=== PATIENT | male | born 1985 | race Caucasian/White ===

== ENCOUNTER → 2017-12-04 | Outpatient (CLI) | payer OTHER ==
--- NOTE | 2017-12-04 16:40 | XR ---
EXAMINATION TYPE: XR shoulder complete LT DATE OF EXAM: 12/04/2017 COMPARISON: NONE HISTORY: 32 year-old male left shoulder pain TECHNIQUE: 3 views FINDINGS: AC joint is congruent and intact. Subacromial space is preserved. No tendinous or bursal calcificatio ns. Smooth delineation to the greater tuberosity. No acute fracture, subluxation, or dislocation. Vis ualized left hemithorax is clear. IMPRESSION: No acute osseous abnormality seen.
== END | disposition home or self-care (01) ==
LOC: RADXRMAIN 16:15
PROVIDERS: ATTEND Family Medicine
DX: M25.512 Pain in left shoulder (principal); M79.622 Pain in left upper arm

== ENCOUNTER 2021-03-26 22:33 | Emergency (ER) | payer OTHER ==
[2021-03-26 22:39] VITALS: TEMP 99
[2021-03-26] MEDS ORDERED: ALPRAZolam 1 MG TAB PO STA (23:19)
--- NOTE | 2021-03-26 23:29 | ED ---
Anxiety HPI - General Chief Complaint: Anxiety Stated Complaint: Vomiting Time Seen by Provider: 03/26/21 23:01 Source: patient Mode of arrival: ambulatory - History of Present Illness Initial Comments: Patient is a 35-year-old male with history of hypertension, anxiety, presenting to the emergency Department with complaints of increased anxiety since yesterday. Patient states over the last few days he's felt like his anxiety has been increasing, he's been really stressed at work. Patient states today seemed to be at its worse and so he tried to taken edible to help with his symptoms however he feels like it made it worse. He states he is having some chest tightness and feels lightheaded. He does not take medication for anxiety, he states he can usually calm himself down by doing other things. He denies any chest pains, no nausea or vomiting. He denies any other drug use. He denies any suicidal thoughts. He has no fevers or chills. He has no further complai nts at this time. Upon arrival to the ER, he is slightly tachycardia at 108, otherwise vitals are stable. - Related Data Allergies/Adverse Reactions: Allergies Allergy/AdvReac Type Severity Reaction Status Date / Time Sulfa (Sulfonamide Allergy Anaphylaxis Verified 03/26/21 22:39 Antibiotics) Review of Systems ROS Statement: Those systems with pertinent positive or pertinent negative responses have been documented in the HPI. ROS Other: All systems not noted in ROS Statement are negative. Past Medical History Past Medical History: Hypertension History of Any Multi-Drug Resistant Organisms: None Reported Past Surgical History: Adenoidectomy, Tonsillectomy Additional Past Surgical History / Comment(s): eye surgery Past Psychological History: Anxiety Smoking Status: Never smoker Past Alcohol Use History: None Reported Past Drug Use History: Marijuana General Exam - General Exam Comments Initial Comments: GENERAL: Patient is well-developed and well-nourished. Patient is nontoxic and in mild distress, appears anxious. HEAD: Atraumatic, normocephalic. EYES: Pupils equal round and reactive to light, extraocular movements intact, sclera anicteric, conjunctiva are normal. Eyelids were unremarkable. ENT: TMs normal, nares patent, oropharynx clear without exudates. Moist mucous membranes. NECK: Normal range of motion, supple without lymphadenopathy or JVD. LUNGS: Unlabored respirations. Breath sounds clear to auscultation bilaterally and equal. No wheezes rales or rhonchi. HEART: Regular rate and rhythm without murmurs, rubs or gallops. ABDOMEN: Soft, nontender, normoactive bowel sounds. No guarding, no rebound. No masses appreciated. : Deferred MUSCULOSKELETAL: Normal extremities with adequate strength and normal range of motion, no pitting or edema. No clubbing or cyanosis. NEUROLOGICAL: Patient is alert and oriented x 3. Motor and sensory are also intact. Cranial nerves II through XII grossly intact. Symmetrical smile. Normal speech, normal gait. PSYCH: Normal mood, normal affect. Anxious. SKIN: Warm, Dry, normal turgor, no rashes or lesions noted. Limitations: no limitations Course Vital Signs 03/26/21 22:35 Temperature 99.0 F Pulse Rate 108 H Respiratory 20 Rate Blood Pressure 154/94 O2 Sat by Pulse 97 Oximetry Medical Decision Making - Medical Decision Making Patient is a 35-year-old male presenting for anxiety over the past few days. He tried edible tonight to help the symptoms however he feels like it made it worse. His vitals are stable other than being slightly tachycardia. EKG shows no acute findings other than sinus tach. Chest x-ray shows is normal. Patient given 1 mg of Xanax. His report improvement in his symptoms. Patient states for his anxiety normally uses meditation, deep breathing exercises. We discussed that he is stable for discharge, recommended going home and practicing this techniques. I also recommend following up with his PCP regarding his anxiety. He is in agreement with this plan of care. He is stable for discharge. Return parameters were discussed with him and he verbalized understanding. Case discussed with Dr. Meyers. - EKG Data EKG Comments: Sinus tach, no signs of acute ischemia. Ventricular rate 112, TX interval 146, QT 318. Disposition Clinical Impression: Acute anxiety Disposition: HOME SELF-CARE Condition: Stable Instructions (If sedation given, give patient instructions): Anxiety (ED) Additional Instructions: Please return to the Emergency Department if symptoms worsen or any other concerns. Recommend continuing with your at home relaxation techniques. Recommend staying home from work tomorrow. Follow-up with your PCP regarding her anxiety. Is patient prescribed a controlled substance at d/c from ED?: No Referrals: Donnie Ontiveros DO [Primary Care Provider] - 1-2 days Time of Disposition: 01:01
--- NOTE | 2021-03-26 23:56 | XR ---
EXAMINATION TYPE: XR chest 2V DATE OF EXAM: 03/26/2021 COMPARISON: NONE HISTORY: Chest pain TECHNIQUE: 2 views FINDINGS: Heart and mediastinum are normal. Lungs are clear. Diaphragm is normal. Bony thorax appears normal. IMPRESSION: Normal chest
[2021-03-27 01:28] VITALS: BP 133/82; PULSE 87; RESP 18
== END 2021-03-27 01:28 | disposition home or self-care (01) ==
LOC: EC 22:33
DX: F41.9 Anxiety disorder, unspecified (principal); R42 Dizziness and giddiness; R11.10 Vomiting, unspecified; R07.89 Other chest pain; I10 Essential (primary) hypertension; F12.90 Cannabis use, unspecified, uncomplicated
CPT/HCPCS: 71046; 93005; 99285

== ENCOUNTER 2021-10-27 18:26 | Emergency (ER) | payer OTHER ==
[2021-10-27 18:49] VITALS: TEMP 97.9
--- NOTE | 2021-10-27 20:03 | XR ---
EXAMINATION TYPE: XR chest 2V DATE OF EXAM: 10/27/2021 COMPARISON: 03/26/2021 HISTORY: Cough TECHNIQUE: 2 views FINDINGS: Heart and mediastinum are normal. Lungs are clear. Diaphragm is normal. Bony thorax appears normal. IMPRESSION: Normal chest. No change.
--- NOTE | 2021-10-27 20:19 | ED ---
General Adult HPI - General Chief complaint: Upper Respiratory Infection Stated complaint: sinus infection Time Seen by Provider: 10/27/21 19:25 Source: patient, family Mode of arrival: ambulatory - History of Present Illness Initial comments: 36-year-old male presents to the emergency department for evaluation of symptoms including sinus pressure and productive cough. States he is currently on an oral antibiotic for treatment of sinus infection. However, is concerned about a recent exposure to Covid therefore is requesting to be tested. States he is not vaccinated due to history of hypertension and palpitations. Does complain of somewhat decreased appetite. Denies fever, chills, headache, chest pain, shortness of breath, abdominal pain, constipation, diarrhea, or dysuria. - Related Data Allergies Allergy/AdvReac Type Severity Reaction Status Date / Time Sulfa (Sulfonamide Allergy Anaphylaxis Verified 10/27/21 18:49 Antibiotics) Review of Systems ROS Statement: Those systems with pertinent positive or pertinent negative responses have been documented in the HPI. ROS Other: All systems not noted in ROS Statement are negative. Past Medical History Past Medical History: Hypertension History of Any Multi-Drug Resistant Organisms: None Reported Past Surgical History: Adenoidectomy, Tonsillectomy Additional Past Surgical History / Comment(s): eye surgery Past Psychological History: Anxiety Smoking Status: Never smoker Past Alcohol Use History: None Reported Past Drug Use History: Marijuana General Exam Limitations: no limitations (Well-developed, well-nourished male in no acute distress. Initial temperature 97.9, pulse 124, respirations 18, blood pressure 150/111, pulse ox 97% on room air.) General appearance: alert, in no apparent distress Eye exam: Present: normal appearance, PERRL, EOMI. Absent: scleral icterus, conjunctival injection, periorbital swelling ENT exam: Present: normal exam, normal oropharynx, mucous membranes moist Respiratory exam: Present: normal lung sounds bilaterally, other (congested cough). Absent: respiratory distress, wheezes, rales, rhonchi, stridor Cardiovascular Exam: Present: normal rhythm, tachycardia GI/Abdominal exam: Present: soft, normal bowel sounds. Absent: distended, tenderness, guarding, rebound, rigid Neurological exam: Present: alert, oriented X3, CN II-XII intact Psychiatric exam: Present: normal affect, normal mood Skin exam: Present: warm, dry, intact, normal color. Absent: rash Course Vital Signs 12/12/21 12/12/21 12/12/21 18:44 19:42 21:45 Temperature 97.9 F Pulse Rate 124 H 108 H Respiratory 18 18 20 Rate Blood Pressure 150/111 140/90 O2 Sat by Pulse 97 96 Oximetry Medical Decision Making - Medical Decision Making 36-year-old male history of hypertension, palpitations and current sinus infection presents to the emergency department for evaluation of congested cough and recent exposure to Covid. Upon exam, patient is well-appearing, with no increased work of breathing and in no acute distress. Patient does have nasal drainage and sinus tenderness upon palpation. Lung sounds are clear to auscultation throughout. Patient is noted to have a congested cough. Chest x- ray is obtained and shows no acute process. Covid test was negative. He is currently taking a Z-Aurelio and oral steroid for his sinus infection. Patient will be discharged home to follow up with his PCP. Return parameters were discussed in detail. Patient verbalizes understanding and agrees with this plan. This patient's care was discussed with my attending Dr. Olvera. - Lab Data Lab Results 10/27/21 Range/Units 19:51 Coronavirus (PCR) Not Detected (Not Detectd) - Radiology Data Radiology results: report reviewed, image reviewed Two-view chest x-ray was obtained. Report was reviewed in its entirety. Impression per Dr. Schumacher is normal chest. No change. Disposition Clinical Impression: Sinus infection Disposition: HOME SELF-CARE Condition: Stable Instructions (If sedation given, give patient instructions): Sinusitis (ED), Upper Respiratory Infection (ED) Additional Instructions: Your COVID test was negative. Continue home medications as prescribed. Follow up with your primary care prov ider for a recheck. Return to the emergency department with any new, worsening, or concerning symptoms. Is patient prescribed a controlled substance at d/c from ED?: No Referrals: Donnie Ontiveros DO [Primary Care Provider] - 1-2 days Time of Disposition: 21:33
[2021-10-27 21:46] VITALS: BP 140/90; PULSE 108; RESP 20
== END 2021-10-27 21:47 | disposition home or self-care (01) ==
LOC: EC 18:26
DX: J32.9 Chronic sinusitis, unspecified (principal); I10 Essential (primary) hypertension; F12.90 Cannabis use, unspecified, uncomplicated; Z88.2 Allergy status to sulfonamides
CPT/HCPCS: 71046; 87635; 99284

== ENCOUNTER 2023-10-29 12:35 | Emergency (ER) | payer OTHER ==
--- NOTE | 2023-10-29 13:26 | ED ---
Abdominal Pain HPI - General Stated Complaint: abd pain Time Seen by Provider: 10/29/23 13:34 Source: patient Mode of arrival: ambulatory Limitations: no limitations - History of Present Illness Initial Comments: Patient is a 38-year-old gentleman presents emergency room for evaluation of right-sided abdominal pain. Was sent in by PCP to evaluate his gallbladder and appendix. He has right upper quadrant abdominal pain that is worse when he lays flat. He occasionally has "tingling"in the right lower abdomen as well. Patient states the pain started yesterday. It is not associated with eating. He denies any nausea vomiting, fever, dysuria hematuria urinary frequency. Patient has a history of hypertension. - Related Data Previous Rx's Medication Instructions Recorded Sucralfate [Carafate] 1 gm PO BID #20 ml 10/29/23 Allergies Allergy/AdvReac Type Severity Reaction Status Date / Time Sulfa (Sulfonamide Allergy Anaphylaxis Verified 10/29/23 13:25 Antibiotics) Review of Systems ROS Statement: Those systems with pertinent positive or pertinent negative responses have been documented in the HPI. ROS Other: All systems not noted in ROS Statement are negative. Past Medical History Past Medical History: Hypertension History of Any Multi-Drug Resistant Organisms: None Reported Past Surgical History: Adenoidectomy, Tonsillectomy Additional Past Surgical History / Comment(s): eye surgery Past Psychological History: Anxiety Smoking Status: Never smoker Past Alcohol Use History: None Reported Past Drug Use History: Marijuana General Exam - General Exam Comments Initial Comments: Visual Physical Exam Vital signs reviewed General: Well-appearing, nontoxic, no acute distress. Head: Normocephalic, atraumatic Eyes: PERRLA, EOMI ENT: Airway patent Chest: Nonlabored breathing Skin: No visual rash, normal skin tone Neuro: Alert and oriented 3 Musculoskeletal: No gross abnormalities Limitations: no limitations General appearance: alert, in no apparent distress Head exam: Present: atraumatic Eye exam: Present: normal appearance ENT exam: Present: normal exam Neck exam: Present: normal inspection, full ROM Respiratory exam: Present: normal lung sounds bilaterally, respiratory distress Cardiovascular Exam: Present: regular rate, normal rhythm GI/Abdominal exam: Present: soft, tenderness (Mild right upper quadrant tenderness or right lower quadrant tenderness no rebound tenderness or guarding.) Extremities exam: Present: full ROM Back exam: Present: full ROM Neurological exam: Present: alert, oriented X3, CN II-XII intact Psychiatric exam: Present: normal affect, normal mood Skin exam: Present: warm, dry Course Vital Signs 10/29/23 10/29/23 10/29/23 13:22 16:19 18:49 Temperature 98.1 F 98.2 F 98.1 F Pulse Rate 85 96 91 Respiratory 16 18 18 Rate Blood Pressure 142/88 175/92 152/86 O2 Sat by Pulse 97 98 98 Oximetry - Reevaluation(s) Reevaluation #1: 10/29/23 16:35 Patient is resting currently at this time. He is now being seen in the hallway with normal labs and a negative ultrasound. Given that he has some mild discomfort in the right lower quadrant and was sent in further evaluate for appendicitis or cholecystitis. We will add a computed tomography scan. Patient is comfortable at this time does not require pain medication. Medical Decision Making - Medical Decision Making Quick note portion completed by myself, electronically signed Doris Hurtado PAC. Was pt. sent in by a medical professional or institution (AKILAH España, CLIENT DELIVERY MANAGER, urgent care, hospital, or usp...) When possible be specific @ -[No] Did you speak to anyone other than the patient for history (EMS, parent, family, police, friend...)? What history was obtained from this source @ -Family at bedside Did you review nursing and triage notes (agree or disagree)? Why? @ -[I reviewed and agree with nursing and triage notes] Were old charts reviewed (outside hosp., previous admission, EMS record, old EKG, old radiological studies, urgent care reports/EKG's, usp records)? Report findings @ -[No old charts were reviewed] Differential Diagnosis (chest pain, altered mental status, abdominal pain women, abdominal pain men, vaginal bleeding, weakness, fever, dyspnea, syncope, headache, dizziness, GI bleed, back pain, seizure, CVA, palpatations, mental health, musculoskeletal)? @ -Gallstones, cholecystitis, appendicitis, gastroenteritis colitis EKG interpreted by me (3pts min.). @ -, EKG shows sinus rhythm with arrhythmia and a rate of 91 bpm, specific ST and T-wave changes @ -[None done] CT interpreted by me (1pt min.). @ -CT scan is negative for any obstruction, mass, appendicitis, colitis or other acute changes U/S interpreted by me (1pt. min.). @ -Ultrasound of the gallbladder is negative for any cholecystitis, gallstones or obvious acute changes. What testing was considered but not performed or refused? (CT, X-rays, U/S, labs)? Why? @ -[None] What meds were considered but not given or refused? Why? @ -[None] Did you discuss the management of the patient with other professionals (professionals i.e. , PA, CLIENT DELIVERY MANAGER, lab, RT, psych nurse, licensed clinical social worker, investigation specialist, teacher, public safety officer, hospice case manager)? Give summary @ -[No] Was smoking cessation discussed for >3mins.? @ -[No] Was critical care preformed (if so, how long)? @ -[No] Were there social determinants of health that impacted care today? How? (Homelessness, low income, unemployed, alcoholism, drug addiction, transportation, low edu. Level, literacy, decrease access to med. care, residential, rehab)? @ -[No] Was there de-escalation of care discussed even if they declined (Discuss DNR or withdrawal of care, Hospice)? DNR status @ -[No] What co-morbidities impacted this encounter? (DM, HTN, Smoking, COPD, CAD, Cancer, CVA, ARF, Chemo, Hep., AIDS, mental health diagnosis, sleep apnea, morbid obesity)? @ -Hypertension Was patient admitted / discharged? Hospital course, mention meds given and route, prescriptions, significant lab abnormalities, going to OR and other pertinent info. @ -[The patient is well-appearing and emergency room with minimal pain. His vital signs are stable and he is afebrile. Labs are unremarkable. Ultrasound of the gallbladder is negative for any gallstones cholecystitis or other acute changes. CT of the abdomen is negative for appendicitis or other acute changes. Patient is stable to follow up with GI specialist her PCP as an outpatient. Discussed signs return to the emergency room. Undiagnosed new problem with uncertain prognosis? @ -[No] Drug Therapy requiring intensive monitoring for toxicity (Heparin, Nitro, Insulin, Cardizem)? @ -[No] Were any procedures done? @ -[No] Diagnosis/symptom? @ -Abdominal pain Acute, or Chronic, or Acute on Chronic? @ -Acute Uncomplicated (without systemic symptoms) or Complicated (systemic symptoms)? @ -[default] Side effects of treatment? @ -[No] Exacerbation, Progression, or Severe Exacerbation? @ -[No] Poses a threat to life or bodily function? How? (Chest pain, [place], [place], pneumonia, PE, COPD, DKA, ARF, appy, cholecystitis, CVA, Diverticulitis, Homicidal, Suicidal, threat to staff... and all critical care pts) @ -[No] - Lab Data Result diagrams: 10/29/23 13:51 10/29/23 13:51 Lab Results 10/29/23 10/29/23 10/29/23 Range/Units 13:51 13:51 13:51 WBC 6.4 (3.8-10.6) k/uL RBC 5.58 (4.30-5.90) m/uL Hgb 16.7 (13.0-17.5) gm/dL Hct 48.1 (39.0-53.0) % MCV 86.3 (80.0-100.0) fL MCH 30.0 (25.0-35.0) pg MCHC 34.8 (31.0-37.0) g/dL RDW 12.1 (11.5-15.5) % Plt Count 309 (150-450) k/uL MPV 7.1 Neutrophils % 66 % Lymphocytes % 24 % Monocytes % 6 % Eosinophils % 1 % Basophils % 1 % Neutrophils # 4.2 (1.3-7.7) k/uL Lymphocytes # 1.5 (1.0-4.8) k/uL Monocytes # 0.4 (0-1.0) k/uL Eosinophils # 0.1 (0-0.7) k/uL Basophils # 0.0 (0-0.2) k/uL Sodium 138 (137-145) mmol/L Potassium 4.2 (3.5-5.1) mmol/L Chloride 100 (98-107) mmol/L Carbon Dioxide 26 (22-30) mmol/L Anion Gap 12 mmol/L BUN 15 (9-20) mg/dL Creatinine 0.93 (0.66-1.25) mg/dL Est GFR (CKD-EPI)AfAm >90 (>60 ml/min/1.73 sqM) Est GFR (CKD-EPI)NonAf >90 (>60 ml/min/1.73 sqM) Glucose 104 H (74-99) mg/dL Calcium 9.9 (8.4-10.2) mg/dL Total Bilirubin 1.1 (0.2-1.3) mg/dL AST 32 (17-59) U/L ALT 47 (4-49) U/L Alkaline Phosphatase 78 (38-126) U/L Total Protein 7.7 (6.3-8.2) g/dL Albumin 4.6 (3.5-5.0) g/dL Lipase 32 (23-300) U/L Urine Color Light Yellow Urine Appearance Clear (Clear) Urine pH 5.0 (5.0-8.0) Ur Specific [place] 1.020 (1.001-1.035) Urine Protein Negative (Negative) Urine Glucose (UA) Negative (Negative) Urine Ketones 3+ (Negative) Urine Blood Negative (Negative) Urine Nitrite Negative (Negative) Urine Bilirubin Negative (Negative) Urine Urobilinogen <2.0 (<2.0) mg/dL Ur Leukocyte Esterase Negative (Negative) Urine RBC <1 (0-5) /hpf Urine WBC <1 (0-5) /hpf Urine Mucus Rare H (None) /hpf - EKG Data -: EKG Interpreted by Me (EKG shows sinus rhythm with arrhythmia at a rate of [address]-T) - Radiology Data Radiology results: report reviewed, image reviewed Disposition Clinical Impression: Abdominal pain Disposition: HOME SELF-CARE Instructions (If sedation given, give patient instructions): Abdominal Pain (ED) Prescriptions: Sucralfate [Carafate] 1 gm PO BID #20 ml Is patient prescribed a controlled substance at d/c from ED?: No When asked, does pt state using other controlled substances?: No Referrals: Donnie Ontiveros DO [Primary Care Provider] - 1-2 days Ibeth Madden MD [STAFF PHYSICIAN] - 1-2 days Time of Disposition: 18:42
[2023-10-29 14:12] LABS: Basophils % (A) 1 %; Eosinophils # (A) 0.1 k/uL (0-0.7); Eosinophils % (A) 1 %; HCT 48.1 % (39.0-53.0); HGB 16.7 gm/dL (13.0-17.5); Lymphocytes # (A) 1.5 k/uL (1.0-4.8); Lymphocytes % (A) 24 %; MCHC 34.8 g/dL (31.0-37.0); MCV 86.3 fL (80.0-100.0); Mean Platelet Volume 7.1; Monocytes # (A) 0.4 k/uL (0-1.0); Monocytes % (A) 6 %; Neutrophils # (A) 4.2 k/uL (1.3-7.7); Neutrophils % (A) 66 %; Platelet Count 309 k/uL (150-450); RBC 5.58 m/uL (4.30-5.90); RDW 12.1 % (11.5-15.5); WBC 6.4 k/uL (3.8-10.6)
[2023-10-29 14:37] LABS: ALT 47 U/L (4-49); AST 32 U/L (17-59); African American GFR (CKD) >90 (>60 ml/min/1.73 sqM); Albumin 4.6 g/dL (3.5-5.0); Alkaline Phosphatase 78 U/L (38-126); Anion Gap 12 mmol/L; Blood Urea Nitrogen 15 mg/dL (9-20); Calcium 9.9 mg/dL (8.4-10.2); Carbon Dioxide 26 mmol/L (22-30); Chloride 100 mmol/L (98-107); Glucose 104 mg/dL (74-99); Lipase 32 U/L (23-300); Non-African American GFR(CKD) >90 (>60 ml/min/1.73 sqM); Potassium 4.2 mmol/L (3.5-5.1); Sodium 138 mmol/L (137-145); Total Bilirubin 1.1 mg/dL (0.2-1.3); Total Protein 7.7 g/dL (6.3-8.2)
[2023-10-29 15:58] LABS: Mucus,Urine Rare /hpf; RBC,Urine <1 /hpf (0-5); WBC,Urine <1 /hpf (0-5)
[2023-10-29 16:02] LABS: Appearance,Urine Clear (Clear); Color,Urine Light Yellow
[2023-10-29 16:03] LABS: Bilirubin,Urine Negative (Negative); Blood,Urine Negative (Negative); Glucose,Urine (UA) Negative (Negative); Ketones,Urine 3+ (Negative); Leukocyte Esterase,Urine Negative (Negative); Nitrite,Urine Negative (Negative); Protein,Urine Negative (Negative); Urobilinogen,Urine <2.0 mg/dL (<2.0)
--- NOTE | 2023-10-29 16:05 | US ---
EXAMINATION TYPE: US gallbladder DATE OF EXAM: 10/29/2023 COMPARISON: NONE CLINICAL INDICATION: Male, 38 years old with history of RUQ abdominal pain; Right side pain. TECHNIQUE: Multiple sonographic images of the right upper quadrant are obtained. FINDINGS: EXAM MEASUREMENTS: Liver Length: 12.5 cm Gallbladder Wall: 0.2 cm CBD: 0.4 cm Right Kidney: 10.3 x 5.7 x 5.5 cm HUMAN RESOURCES MANAGER NOTES:Suboptimal due to bowel gas Pancreas: Body and tail obscured by overlying bowel gas, limited visualization Liver: wnl as visualized Gallbladder: No stones or wall thickening visualized Evidence for sonographic Haskins's sign: neg CBD: limited visualization Right Kidney: No hydronephrosis or masses seen IMPRESSION: No evidence for acute process. The gallbladder appears within normal limits. No obstructive uropathy in the right kidney.
[2023-10-29 16:24] VITALS: RESP 18
--- NOTE | 2023-10-29 18:33 | CT ---
EXAMINATION TYPE: CT abdomen pelvis w con CT DLP: 983.5 mGycm, Automated exposure control for dose reduction was used. DATE OF EXAM: 10/29/2023 4:57 PM COMPARISON: None. CLINICAL INDICATION:Male, 38 years old with history of RLQ pain; pt comes in for right upper and lowe r abdominal pain and nausea TECHNIQUE: Axial CT of the abdomen and pelvis. Sagittal and coronal reformats were created on a [employer] workstation. Contrast used:100 mL of Isovue 300 with IV Contrast, (none if empty) Oral contrast used: without Oral Contrast (none if empty) FINDINGS: LOWER CHEST: Unremarkable ABDOMEN LIVER: Unremarkable GALLBLADDER AND BILE DUCTS: Unremarkable. PANCREAS: Unremarkable. SPLEEN: Unremarkable. ADRENAL GLANDS: Unremarkable. KIDNEYS AND URETERS: No evidence of hydronephrosis or renal calculus. The ureters are unremarkable. PELVIS BLADDER: Unremarkable for the degree of distention. REPRODUCTIVE: Prostate unremarkable. ABDOMEN & PELVIS STOMACH AND BOWEL: Stomach and small bowel are nondistended, no evidence of obstruction. In the right lower quadrant what appears to be the appendix does not appear dilated or inflamed. There is mild/mo derate stool throughout the colon. A few scattered diverticuli, without evidence of diverticulitis. PERITONEUM/RETROPERITONEUM: No evidence of pneumoperitoneum or free fluid. VASCULATURE: No evidence of aortic aneurysm. MUSCULOSKELETAL: No acute osseous abnormalities LYMPH NODES: No gross evidence for lymphadenopathy. SOFT TISSUE/ABDOMINAL WALL: Unremarkable IMPRESSION: No acute abnormality in the abdomen or pelvis.
[2023-10-29 19:07] VITALS: BP 152/86; PULSE 91; TEMP 98.1
== END 2023-10-29 18:52 | disposition home or self-care (01) ==
LOC: EC 12:35
DX: R10.11 Right upper quadrant pain (principal); I10 Essential (primary) hypertension; F12.90 Cannabis use, unspecified, uncomplicated; Z86.59 Personal history of other mental and behavioral disorders; Z88.2 Allergy status to sulfonamides
CPT/HCPCS: 36415; 93005; 80053; 83690; 85025; 81003; 76705; 74177; 99284; Q9967

== ENCOUNTER → 2024-02-11 | Outpatient (CLI) | payer OTHER ==
--- NOTE | 2024-02-11 10:11 | XR ---
EXAMINATION TYPE: XR abdomen 1V DATE OF EXAM: 02/11/2024 COMPARISON: None INDICATION: Abdomen pain TECHNIQUE: Single view abdomen upright view FINDINGS: Nonspecific bowel gas pattern is present. This is predominantly within the colon. No significant fecal debris is evident. Psoas margins are normal. No organomegaly is present. IMPRESSION: 1. Unremarkable Abdomen
== END | disposition home or self-care (01) ==
LOC: RADXRMAIN 09:12
PROVIDERS: ATTEND Family Medicine
DX: R10.9 Unspecified abdominal pain (principal); G89.29 Other chronic pain
CPT/HCPCS: 74018